=== PATIENT | female | born 1995 | race Caucasian/White ===

== ENCOUNTER 2017-06-14 16:46 | Inpatient (IN) | payer OTHER ==
[~2017-06-14] VITALS: Ht 167.6 cm; Wt 60.1 kg
[2017-06-14 16:50] VITALS: Ht 167.6 cm; Wt 60.1 kg
[2017-06-14] MEDS ORDERED: KETOROLAC 30 MG INJ IV STA (17:31)
[2017-06-14] MEDS ORDERED: SOD CHLORIDE 0.9% 1,000 ML IV STA ×2 (17:31→18:47)
[2017-06-14] MEDS ORDERED: ACETAMINOPHEN 500 MG TAB PO STA (17:33)
--- NOTE | 2017-06-14 17:41 | ERD ---
ER Documentation Chief Complaint Chief Complaint Fever right flank pain HPI This is a 21-year-old female complains of diffuse body aches dull headache, right flank pain fever with mild/ mod dysuria, with severe urinary frequency urinating every 20-30 minutes. She says she has had the symptoms for 2-3 days now. Says that she has a dull headache is diffuse no sore throat no photophobia no stiff neck. She says she has diffuse arthralgias and myalgias. Also complains of some right flank pain is dull and constant worse with walking. No abdominal pain no vomiting diarrhea no shortness of breath chest pain or cough ROS All systems reviewed and are negative except as per history of present illness. Allergies Allergies: Coded Allergies: No Known Allergy (Unverified , 06/14/17) PMhx/Soc Medical and Surgical Hx: pt denies Medical Hx, pt denies Surgical Hx Hx Alcohol Use: No Hx Substance Use: No Hx Tobacco Use: No Smoking Status: Never smoker FmHx Family History: No coronary disease Physical Exam Vitals Vital Signs Date Time Temp Pulse Resp B/P Pulse Ox O2 Delivery O2 Flow Rate FiO2 06/14/17 16:50 102.6 131 20 117/62 98 Physical Exam Const: Well-developed, well-nourished Head: Atraumatic, normocephalic Eyes: Normal Conjunctiva, PERRLA, EOMI, normal sclera, no nystagmus ENT: Normal External Ears, Nose and Mouth, moist mucus membranes. Neck: Full range of motion. No meningismus, no lymphadenopathy. Resp: Clear to auscultation bilaterally, no wheezing, rhonchi, rales Cardio: Tachycardia no murmurs, S1 S2 present Abd: Soft, patient appears approximately 4 months, suprapubic tenderness mild, non distended. Normal bowel sounds, no guarding or rebound, no pulsitile abdominal masses or bruits Skin: No petechiae or rashes, no ecchymosis , no maculopapular rash Back: Right flank tenderness Ext: No cyanosis, or edema, FROM x 4, normal inspection, neurovascularly intact x 4 Neur: Awake and alert, STR 5/5 x 4, sensation intact x 4, no focal findings, cerebellum intact Psych: Normal Mood and Affect Result Diagram: 11/4/17 1747 11/4/17 1747 Results 24 hrs Laboratory Tests Test 06/14/17 17:47 White Blood Count 17.110^3/ul Red Blood Count 3.2810^6/ul Hemoglobin 9.8g/dl Hematocrit 28.2% Mean Corpuscular Volume 86.0fl Mean Corpuscular Hemoglobin 29.9pg Mean Corpuscular Hemoglobin Concent 34.8g/dl Red Cell Distribution Width 12.6% Platelet Count 44449^3/UL Mean Platelet Volume 10.1fl Neutrophils % % Segmented Neutrophils % (Manual) 72% Band Neutrophils % (Manual) 9% Lymphocytes % % Lymphocytes % (Manual) 9% Monocytes % % Monocytes % (Manual) 7% Eosinophils % % Eosinophils % (Manual) 1% Basophils % % Metamyelocytes % (manual) 2% Nucleated Red Blood Cells % 0.0/100WBC Neutrophils # 10^3/ul Neutrophils # (Manual) 12.610^3/ul Band Neutrophils # 1.510^3/ul Absolute Lymphocytes (Manual) 1.510^3/ul Lymphocytes # 10^3/ul Monocytes # 10^3/ul Absolute Monocytes (Manual) 1.110^3/ul Eosinophils # 10^3/ul Basophils # 10^3/ul Metamyelocytes # 0.310^3/ul Nucleated Red Blood Cells # 10^3/ul Platelet Estimate NORMAL Urine Color YELLOW Urine Clarity CLEAR Urine pH 6.0 Urine Specific [place] 1.002 Urine Ketones NEGATIVEmg/dL Urine Nitrite NEGATIVEmg/dL Urine Bilirubin NEGATIVEmg/dL Urine Urobilinogen 2+mg/dL Urine Leukocyte Esterase 1+[place]/ul Urine Microscopic RBC 0/HPF Urine Microscopic WBC 3/HPF Urine Hemoglobin 1+mg/dL Urine Glucose NEGATIVEmg/dL Urine Total Protein 1+mg/dl Sodium Level 127mmol/L Potassium Level 2.8mmol/L Chloride Level 91mmol/L Carbon Dioxide Level 24mmol/L Anion Gap 15 Blood Urea Nitrogen 3mg/dl Creatinine 0.69mg/dl Glucose Level 105mg/dl Calcium Level 8.0mg/dl Total Bilirubin 0.4mg/dl Direct Bilirubin 0.00mg/dl Indirect Bilirubin 0.4mg/dl Aspartate Amino Transf (AST/SGOT) 21IU/L Alanine Aminotransferase (ALT/SGPT) 26IU/L Alkaline Phosphatase 87IU/L Total Protein 5.9g/dl Albumin 3.1g/dl Globulin 2.80g/dl Albumin/Globulin Ratio 1.10 Current Medications Medications (Trade) Dose Ordered Sig/Tanvi Route PRN Reason Start Time Stop Time Status Last Admin Dose Admin Sodium Chloride (NS) 1,000 ml @ 1,000 mls/hr Q1H STAT IV 06/14/17 17:31 06/14/17 18:30 DC 06/14/17 18:20 Ketorolac Tromethamine 30 mg 30 mg ONCE STAT IV 06/14/17 17:31 06/14/17 17:32 DC Ceftriaxone Sodium (Rocephin) 50 ml @ 100 mls/hr ONCE ONCE IVPB 06/14/17 18:00 06/14/17 18:29 DC 06/14/17 18:20 Acetaminophen 1000 mg 1,000 mg ONCE STAT PO 06/14/17 17:33 06/14/17 17:34 DC 06/14/17 18:20 Sodium Chloride 1,000 ml @ 1,000 mls/hr Q1H STAT IV 06/14/17 18:47 06/14/17 19:46 Potassium Chloride/Dextrose (KCl/D5W) 265 ml @ 88.333 mls/ hr ONCE ONCE IVPB 06/14/17 20:00 06/14/17 22:59 Hydromorphone HCl (Dilaudid) 1 mg ONCE STAT IV 06/14/17 19:10 06/14/17 19:11 DC Ondansetron HCl (Zofran Inj) 4 mg ONCE STAT IV 06/14/17 19:10 06/14/17 19:11 DC Procedures/MDM Ultrasound of the pelvis demonstrates a 22 week 4 day fetus, viable, read by radiology The patient did not know she was . The patient gets the Depakote shot. The patient's white blood count is elevated with a mild bandemia. She also has hypokalemia. Patient clinically has pyelonephritis at 22 weeks . We will admit the patient for IV antibiotics and fluids, and pain control. Blood cultures and urine cultures have been sent the patient received Rocephin 1 g IV here We will call the laborist for admission Departure Diagnosis: Primary Impression: Pyelonephritis Additional Impressions: Weeks of gestation: 22 weeks Qualified Code: Z3A.22 - 22 weeks gestation of Hypokalemia Condition: Stable PRINCESS LOPEZ 4, 2017 17:41
[2017-06-14] MEDS ORDERED: CEFTRIAXONE 1 GM/50 ML (PMX) 50 ML IVPB ONE (18:00)
[2017-06-14] MEDS ORDERED: ONDANSETRON 4 MG INJ IV STA (19:10)
[2017-06-14] MEDS ORDERED: HYDROmorphONE 1 MG/ML SYG IV STA (19:10)
[2017-06-14] MEDS ORDERED: SOD CHLORIDE 0.9% 1,000 ML IV SCH (19:31)
--- NOTE | 2017-06-14 19:42 | RADRPT ---
PROCEDURE: US OB. CLINICAL INDICATION: Pain. TECHNIQUE: Multiple sonographic images of the pelvis were obtained. Transabdominal imaging only w as performed. The images were reviewed on a PACS workstation. COMPARISON: None. FINDINGS: Single live intrauterine is identified. Cardiac activity is present with 182 beats per mi nute. There is a vertex presentation. Measurements: BPD = 22 weeks 5 days. HC = 22 weeks 2 days. AC = 22 weeks 4 days. FL = 22 weeks 2 days Estimated gestational age of approximately 22 weeks 3 days. The estimated date of delivery is 10/15/2017. The EFW = 507 g. Limited evaluation of anatomy is without gross abnormality. The placenta is posterior. There is a grossly normal amount of amniotic fluid with an MVP = 5.6 cm. Cervix was not visualized due to low presentation. IMPRESSION: Single live intrauterine gestation of approximately 22 weeks 3 days. RPTAT: HMVK .Ryan Hinds MD, Date Time Electronically viewed and signed by .Ryan Hinds MD, MD on 06/14/2017 19:42 .K/
[2017-06-14] MEDS ORDERED: ONDANSETRON 4 MG INJ IV PRN (20:00)
[2017-06-14] MEDS ORDERED: ACETAMINOPHEN 325 MG TAB PO PRN (20:00)
[2017-06-14] MEDS ORDERED: POTASSIUM CHLORIDE 30 MEQ in DEXTROSE 5% 250 ML IVPB ONE (20:00)
[2017-06-15 01:09] VITALS: BP 100/53; PULSE 90; RESP 18
[2017-06-15] MEDS ORDERED: ACETAMINOPHEN 1000MG/100ML IV 100 ML IVPB ONE (01:30)
[2017-06-15] MEDS ORDERED: ONDANSETRON 4 MG INJ IV PRN (01:30)
--- NOTE | 2017-06-15 01:36 | HP ---
Date/Time of Note Date/Time of Note DATE: 06/15/17 TIME: 01:33 OB - History Hx of Present Free Text/Dictation 21 y.o. G1 who states she has been on Depo-Provera injections q 3 months but doesn't recall when the last one was and was found to be 22 weeks and the patient states that she didn't know. Pt came to the ER for back pain and chills and was found to have a right pyelonephritis with an elevated WBC count, right CVAT, and a temperature of 102.6. She has been symptomatic x 1 week along with nausea and vomiting including some vomiting of blood. PMHx: none. PSHx: none. NKDA. Estimated Due Date: Oct 15, 2017 : 1 Para: 0 Care: None Ultrasounds: No ultrasounds Obstetrical Complications: None Medical Complications: Genitourinary (pyelonephritis) Other Concerns: Pt states her parents are very conservative and pentecostalism and she thinks she will get kicked out of the house. She says her sister had a boyfriend and her parents stopped talking to her and now that she is engaged her parents have just barely started talking to her again. Also apparently the father of the baby is in [facility] and hasn't been sentenced yet so she doesn't know for how long. Past Family/Social History * Past Medical, Surgical, Family and Obstetric Histories reviewed from chart. Blood Type: Unknown Rubella: unknown RPR/VDRL: Unknown GBS Status: Unknown HBsAG: Unknown OB Admission Exam Vital Signs Vital Signs Vital Signs Date Time Temp Pulse Resp B/P Pulse Ox O2 Delivery O2 Flow Rate FiO2 06/15/17 01:09 97.6 90 18 100/53 Room Air 06/14/17 16:50 98 Physical Exam HEENT: WNL Heart: Rhythm Normal Lungs: Clear (with 1+ right CVAT.) Abdomen: Abnormal (gravid) Extremities: Normal Reflexes: Normal Heart Rate: 120's Contractions on Admission: None Last 72 hours Lab Results CBC & BMP 06/14/17 17:47 Liver Function Test 06/14/17 17:47 Alanine Aminotransferase (ALT/SGPT) 26 Albumin 3.1 L Alkaline Phosphatase 87 Aspartate Amino Transf (AST/SGOT) 21 Direct Bilirubin 0.00 Total Protein 5.9 L OB Assessment/Plan Reason for admission: other (pyelonephritis) Other Assessment: Anemia. Other plan: IV hydration and IV antibiotics. K+ replacement. PNV and iron. dope maintenance worker consult. YOKO MARTINEZ MD Jun 15, 2017 01:36
--- NOTE | 2017-06-15 01:36 | HP ---
Date/Time of Note Date/Time of Note DATE: 06/15/17 TIME: 01:33 OB - History Hx of Present Free Text/Dictation 21 y.o. G1 who states she has been on Depo-Provera injections q 3 months but doesn't recall when the last one was and was found to be 22 weeks and the patient states that she didn't know. Pt came to the ER for back pain and chills and was found to have a right pyelonephritis with an elevated WBC count, right CVAT, and a temperature of 102.6. She has been symptomatic x 1 week along with nausea and vomiting including some vomiting of blood. PMHx: none. PSHx: none. NKDA. Estimated Due Date: Oct 15, 2017 : 1 Para: 0 Care: None Ultrasounds: No ultrasounds Obstetrical Complications: None Medical Complications: Genitourinary (pyelonephritis) Other Concerns: Pt states her parents are very conservative and denominational and she thinks she will get kicked out of the house. She says her sister had a boyfriend and her parents stopped talking to her and now that she is engaged her parents have just barely started talking to her again. Also apparently the father of the baby is in penitentiary and hasn't been sentenced yet so she doesn't know for how long. Past Family/Social History * Past Medical, Surgical, Family and Obstetric Histories reviewed from chart. Blood Type: Unknown Rubella: unknown RPR/VDRL: Unknown GBS Status: Unknown HBsAG: Unknown OB Admission Exam Vital Signs Vital Signs Vital Signs Date Time Temp Pulse Resp B/P Pulse Ox O2 Delivery O2 Flow Rate FiO2 06/15/17 01:09 97.6 90 18 100/53 Room Air 06/14/17 16:50 98 Physical Exam HEENT: WNL Heart: Rhythm Normal Lungs: Clear (with 1+ right CVAT.) Abdomen: Abnormal (gravid) Extremities: Normal Reflexes: Normal Heart Rate: 120's Contractions on Admission: None Last 72 hours Lab Results CBC & BMP 06/14/17 17:47 Liver Function Test 06/14/17 17:47 Alanine Aminotransferase (ALT/SGPT) 26 Albumin 3.1 L Alkaline Phosphatase 87 Aspartate Amino Transf (AST/SGOT) 21 Direct Bilirubin 0.00 Total Protein 5.9 L OB Assessment/Plan Reason for admission: other (pyelonephritis) Other Assessment: Anemia. Other plan: IV hydration and IV antibiotics. K+ replacement. PNV and iron. wafer line worker consult. YOKO MARTINEZ MD Jun 15, 2017 01:36
--- NOTE | 2017-06-15 01:36 | HP ---
Date/Time of Note Date/Time of Note DATE: 06/15/17 TIME: 01:33 OB - History Hx of Present Free Text/Dictation 21 y.o. G1 who states she has been on Depo-Provera injections q 3 months but doesn't recall when the last one was and was found to be 22 weeks and the patient states that she didn't know. Pt came to the ER for back pain and chills and was found to have a right pyelonephritis with an elevated WBC count, right CVAT, and a temperature of 102.6. She has been symptomatic x 1 week along with nausea and vomiting including some vomiting of blood. PMHx: none. PSHx: none. NKDA. Estimated Due Date: Oct 15, 2017 : 1 Para: 0 Care: None Ultrasounds: No ultrasounds Obstetrical Complications: None Medical Complications: Genitourinary (pyelonephritis) Other Concerns: Pt states her parents are very conservative and tenriism and she thinks she will get kicked out of the house. She says her sister had a boyfriend and her parents stopped talking to her and now that she is engaged her parents have just barely started talking to her again. Also apparently the father of the baby is in retirement and hasn't been sentenced yet so she doesn't know for how long. Past Family/Social History * Past Medical, Surgical, Family and Obstetric Histories reviewed from chart. Blood Type: Unknown Rubella: unknown RPR/VDRL: Unknown GBS Status: Unknown HBsAG: Unknown OB Admission Exam Vital Signs Vital Signs Vital Signs Date Time Temp Pulse Resp B/P Pulse Ox O2 Delivery O2 Flow Rate FiO2 06/15/17 01:09 97.6 90 18 100/53 Room Air 06/14/17 16:50 98 Physical Exam HEENT: WNL Heart: Rhythm Normal Lungs: Clear (with 1+ right CVAT.) Abdomen: Abnormal (gravid) Extremities: Normal Reflexes: Normal Heart Rate: 120's Contractions on Admission: None Last 72 hours Lab Results CBC & BMP 06/14/17 17:47 Liver Function Test 06/14/17 17:47 Alanine Aminotransferase (ALT/SGPT) 26 Albumin 3.1 L Alkaline Phosphatase 87 Aspartate Amino Transf (AST/SGOT) 21 Direct Bilirubin 0.00 Total Protein 5.9 L OB Assessment/Plan Reason for admission: other (pyelonephritis) Other Assessment: Anemia. Other plan: IV hydration and IV antibiotics. K+ replacement. PNV and iron. garage worker consult. YOKO MARTINEZ MD Jun 15, 2017 01:36
[2017-06-15] MEDS: SOD CHLORIDE 0.9% 1,000 ML IV SCH ×4 (01:44→22:10)
[2017-06-15] MEDS: HYDROCODONE/APAP (10/325) TAB PO PRN ×2 (13:35→22:15)
[2017-06-15] MEDS ORDERED: ACETAMINOPHEN 1000MG/100ML IV 100 ML IVPB SCH (17:00)
[2017-06-15] MEDS ORDERED: ACETAMINOPHEN 1000MG/100ML IV 100 ML IVPB PRN (17:00)
[2017-06-15] MEDS ORDERED: ACETAMINOPHEN 325 MG TAB PO PRN (17:00)
[2017-06-15] MEDS ORDERED: HYDROmorphONE 1 MG/ML SYG IV PRN (17:00)
--- NOTE | 2017-06-15 17:08 | PN ---
Date/Time of Note Date/Time of Note DATE: 06/15/17 TIME: 16:57 Assessment/Plan VTE Prophylaxis VTE Prophylaxis Intervention: ambulation Subjective 24 Hr Interval Summary Free Text/Dictation February 12, 2017 scrap kettle tender progress note This patient is a 21 years old 2 para 0 1 with estimated date of confinement of October 15, 2017 which makes her 22 weeks and 4 days now she came to ER complaining of a low back pain and fever. She stated that she did not even know that she is . her condition of pain fatigue and temperature apparently was continued for a week . some workup was done in the emergency room; including blood culture results of which is not available, her WBC was 17.1 'on electrolyte potassium was 2.8. her body temperature was 102.6 in the OR' she was given Rocephin 1 g and is supposed to be repeated every 24 hours . this patient constantly asking for narcotics as a pain reliever. in response to 'what is the level of pain from 1-10 ' she says her level is 12/ 10 which appears to be an exaggeration Constitutional: other (Occasional elevation of temperature), No chills, No diaphoresis, No disoriented, No febrile, No improved, No no complaints, No poor po, No requiring IVF, No requiring O2 Eyes: other (.) ENT: No bleeding, No congestion, No discharge, No dysphagia, No no complaints, No other, No pain, No sore throat Respiratory: No cough, No no complaints, No other, No pain, No pleuritic pain, No shortness of breath, No sputum, No wheezing Cardiovascular: other (.), No chest pain, No edema (Her chest is clear to auscultation or percussion no rales. ), No lightheadedness, No no complaints, No orthopenea, No palpitations , No paroxysmal nocturnal dyspnea Gastrointestinal: No blood, No constipation, No decreased appetite, No diarrhea , No flatus, No nausea, No no complaints, No other, No pain, No passing stool, No vomiting Genitourinary: other (As I mentioned she is complaining of generalized body ache especially on her back ) Skin: other (No eruption no petechiae), No bruising, No erythema, No laceration, No no complaints, No pruritis, No rash, No skin lesions Neurologic: other (Knee-jerk reflexes within normal limit), No confusion, No dizziness, No focal-weakness, No headache, No no complaints , No seizure, No syncope Endocrine: No dry skin, No no complaints, No other, No polydypsia, No polyuria , No temp intolerance Lymphatic: No adenopathy, No lymphadema, No no complaints, No other, No tender nodes Psychological: No anxiety, No confusion, No depression, No nl mood/affect, No no complaints, No other, No suicidal Immunologic: No immunodeficiency, No no complaints, No other, No pruritis, No rhinitis, No urticaria Additional Comments She is placed on Ancef 1 g every day and is receiving different medication for her pain including IV Tylenol, Dilaudid ,Kelso. Basically she is constantly requesting the narcotic pain reliever If her condition continues she should be seen by ID. Exam/Review of Systems Vital Signs Vitals Vital Signs Date Time Temp Pulse Resp B/P Pulse Ox O2 Delivery O2 Flow Rate FiO2 06/15/17 01:09 97.6 90 18 100/53 Room Air 06/14/17 16:50 98 Intake and Output 06/14/17 06/14/17 06/15/17 15:00 23:00 07:00 Intake Total 1525 ml Output Total 450 ml Balance 1075 ml Results Result Diagram: 06/14/17 1747 06/14/17 1747 Results 24 hrs Laboratory Tests Test 06/14/17 17:47 White Blood Count 17.1 H Red Blood Count 3.28 L Hemoglobin 9.8 L Hematocrit 28.2 L Mean Corpuscular Volume 86.0 Mean Corpuscular Hemoglobin 29.9 Mean Corpuscular Hemoglobin Concent 34.8 Red Cell Distribution Width 12.6 Platelet Count 196 Mean Platelet Volume 10.1 Neutrophils % Segmented Neutrophils % (Manual) 72 Band Neutrophils % (Manual) 9 H Lymphocytes % Lymphocytes % (Manual) 9 L Monocytes % Monocytes % (Manual) 7 Eosinophils % Eosinophils % (Manual) 1 Basophils % Metamyelocytes % (manual) 2 H Nucleated Red Blood Cells % 0.0 Neutrophils # Neutrophils # (Manual) 12.6 H Band Neutrophils # 1.5 H Absolute Lymphocytes (Manual) 1.5 Lymphocytes # Monocytes # Absolute Monocytes (Manual) 1.1 H Eosinophils # Basophils # Metamyelocytes # 0.3 H Nucleated Red Blood Cells # Platelet Estimate NORMAL Urine Color YELLOW Urine Clarity CLEAR Urine pH 6.0 Urine Specific [place] 1.002 L Urine Ketones NEGATIVE Urine Nitrite NEGATIVE Urine Bilirubin NEGATIVE Urine Urobilinogen 2+ H Urine Leukocyte Esterase 1+ H Urine Microscopic RBC 0 Urine Microscopic WBC 3 Urine Hemoglobin 1+ H Urine Glucose NEGATIVE Urine Total Protein 1+ H Sodium Level 127 L Potassium Level 2.8 *L Chloride Level 91 L Carbon Dioxide Level 24 Anion Gap 15 Blood Urea Nitrogen 3 L Creatinine 0.69 Glucose Level 105 Calcium Level 8.0 L Total Bilirubin 0.4 Direct Bilirubin 0.00 Indirect Bilirubin 0.4 Aspartate Amino Transf (AST/SGOT) 21 Alanine Aminotransferase (ALT/SGPT) 26 Alkaline Phosphatase 87 Total Protein 5.9 L Albumin 3.1 L Globulin 2.80 Albumin/Globulin Ratio 1.10 Medications Medications Current Medications Ceftriaxone Sodium (Rocephin) 50 ml @ 100 mls/hr Q24H IVPB ; Start 06/15/17 at 18:30 Ondansetron HCl 4 mg 4 mg Q6H PRN IV NAUSEA AND/OR VOMITING; Start 06/15/17 at 01:30 Sodium Chloride (NS) 1,000 ml @ 125 mls/hr Q8H IV Last administered on 09:28; Admin Dose 125 MLS/HR; Start 06/15/17 at 01:30 Prenat Multivit/ [place]/Iron/Folic Ac () 1 tab DAILY PO ; Start 06/15/17 at 09:00 Polysaccharide Iron Complex (Niferex-150) 1 cap BID PO ; Start 06/15/17 at 09:00 Acetaminophen/ Hydrocodone Bitart (Kelso (10/325)) 1 tab Q4H PRN PO PAIN Last administered on 06/15/17 13:35; Admin Dose 1 TAB; Start 06/15/17 at 13:30 Hydromorphone HCl (Dilaudid) 1 mg Q6H PRN IV PAIN LEVEL 8-10; Start 06/15/17 at 17:00; Status UNV BRENNA JANSEN MD Jun 15, 2017 17:08 BRENNA JANSEN MD Jun 15, 2017 17:08
--- NOTE | 2017-06-15 18:10 | RADRPT ---
PROCEDURE: Renal US. CLINICAL INDICATION: Right flank pain. TECHNIQUE: Multiple sonographic images of the kidneys and urinary bladder were obtained. The imag es were reviewed on a PACS workstation. COMPARISON: No prior studies are available for comparison. FINDINGS: The right kidney measures 11.0 x 6.9 x 5.0 cm. The left kidney measures 11.4 x 6.0 x 5.1 cm. There is no renal mass. There is mild right hydronephrosis. There is no left hydronephrosis. There is no renal calculus. Renal parenchymal thickness is normal bilaterally. Echogenicity is normal bilaterally. The perirenal regions are normal with no fluid collection or mass. The urinary bladder is empty. There is an intrauterine gestation. IMPRESSION: 1. Mild right hydronephrosis. 2. No left hydronephrosis. 3. Empty bladder. 4. Intrauterine gestation. 5. Otherwise unremarkable renal ultrasound. RPTAT: QQ .Cheko Brian MD, Date Time Electronically viewed and signed by .Cheko Brian MD, on 06/15/2017 18:10 .R/
[2017-06-15] MEDS: POLYSACCHARIDE IRON COMPLEX CAP PO SCH ×2 (18:12→22:14)
[2017-06-15] MEDS: PRENATAL VITAMIN PO SCH (18:12)
[2017-06-15] MEDS: CEFTRIAXONE 1 GM/50 ML (PMX) 50 ML IVPB SCH (18:13)
[2017-06-16] MEDS: SOD CHLORIDE 0.9% 1,000 ML IV SCH ×3 (05:06→20:20)
[2017-06-16] MEDS: POLYSACCHARIDE IRON COMPLEX CAP PO SCH ×2 (09:18→21:00)
[2017-06-16] MEDS: PRENATAL VITAMIN PO SCH (09:18)
[2017-06-16] MEDS: HYDROCODONE/APAP (10/325) TAB PO PRN (09:21)
[2017-06-16] MEDS: CEFTRIAXONE 1 GM/50 ML (PMX) 50 ML IVPB SCH (18:30)
[2017-06-16] MEDS: POTASSIUM CHLORIDE (SR) 20 MEQ TAB PO SCH (20:10)
[2017-06-17] MEDS: POTASSIUM CHLORIDE (SR) 20 MEQ TAB PO SCH (00:34)
[2017-06-17] MEDS: SOD CHLORIDE 0.9% 1,000 ML IV SCH ×3 (06:15→23:44)
[2017-06-17] MEDS: HYDROCODONE/APAP (10/325) TAB PO PRN (08:55)
[2017-06-17] MEDS: PRENATAL VITAMIN PO SCH (08:56)
[2017-06-17] MEDS: POLYSACCHARIDE IRON COMPLEX CAP PO SCH ×2 (08:56→21:54)
[2017-06-17] MEDS ORDERED: POTASSIUM CHLORIDE (SR) 20 MEQ TAB PO STA (13:38)
--- NOTE | 2017-06-17 17:50 | QN ---
Documentation Comment Pyelonephritis No pain comfortable afebrile No Vb +FHR No CTXs No CVA tenderness today --->possible Discharge tomorrow --->continue Antibiotics DESMOND GELLER M.D. Jun 17, 2017 17:50
[2017-06-17] MEDS: CEFTRIAXONE 1 GM/50 ML (PMX) 50 ML IVPB SCH (18:27)
[2017-06-18] MEDS: SOD CHLORIDE 0.9% 1,000 ML IV SCH ×2 (08:30→17:30)
[2017-06-18] MEDS: PRENATAL VITAMIN PO SCH (09:19)
[2017-06-18] MEDS: POLYSACCHARIDE IRON COMPLEX CAP PO SCH (11:44)
[2017-06-18] MEDS ORDERED: LACTATED RINGER'S 1,000 ML IV SCH (13:31)
--- NOTE | 2017-06-18 17:31 | PD.PPDC ---
REPAIRER HANDTOOLS Discharge Instruction Provider Information Physician Information Guilherme Rodriguez MD Condition Patient Condition: Good Diet Diet: Resume Regular Diet Activity/Restrictions Activity: Normal Activity Restrictions: No Lifting No Driving Nothing in the Vagina No Tampons, douche Follow-up Follow-up with Physician: 2, Day/Days Provider Information: Patient desires and requests termination. s/p social media marketing manager consultation. Family planning associated information was provided to the patient. Patient understands limitation of GA less than 24 weeks at the time of termination. She also was given information about all review REPAIRER HANDTOOLS department to have a follow-up within 2 days after discharge from the hospital or in any case that she could not proceed with termination. Patient consideres baby for adoption if she cannot proceed with termination. All questions were answered. Explained to the patient needs to continue complete course of treatment for pyelonephritis for 14 days with p.o. antibiotics around the clock and then prophylactic treatment once a day pill through the rest of the and course. Patient verbalized understanding. Adequate p.o. hydration discussed with the patient. Patient verbalized understanding all above discussion and had no questions. Return to clinic for STEEL RULE DIE MAKER Instructions: Fever greater than 101 Chills Worsening abdominal pain Excessive Vaginal Bleeding Comment: Sent to present to labor and delivery triage if she has any fever, chills, urinary symptoms, leaking of fluid, vaginal bleeding, decreased movements , abdominal pain or for any other concern. GUILHERME RODRIGUEZ MD Jun 18, 2017 17:31
--- NOTE | 2017-06-18 17:31 | PD.PPDC ---
ULTRASONOGRAPHER Discharge Instruction Provider Information Physician Information Guilherme Rodriguez MD Condition Patient Condition: Good Diet Diet: Resume Regular Diet Activity/Restrictions Activity: Normal Activity Restrictions: No Lifting No Driving Nothing in the Vagina No Tampons, douche Follow-up Follow-up with Physician: 2, Day/Days Provider Information: Patient desires and requests termination. s/p social sciences instructor consultation. Family planning associated information was provided to the patient. Patient understands limitation of GA less than 24 weeks at the time of termination. She also was given information about all review ULTRASONOGRAPHER department to have a follow-up within 2 days after discharge from the hospital or in any case that she could not proceed with termination. Patient consideres baby for adoption if she cannot proceed with termination. All questions were answered. Explained to the patient needs to continue complete course of treatment for pyelonephritis for 14 days with p.o. antibiotics around the clock and then prophylactic treatment once a day pill through the rest of the and course. Patient verbalized understanding. Adequate p.o. hydration discussed with the patient. Patient verbalized understanding all above discussion and had no questions. Return to clinic for HAND QUILTER Instructions: Fever greater than 101 Chills Worsening abdominal pain Excessive Vaginal Bleeding Comment: Sent to present to labor and delivery triage if she has any fever, chills, urinary symptoms, leaking of fluid, vaginal bleeding, decreased movements , abdominal pain or for any other concern. GUILHERME RODRIGUEZ MD Jun 18, 2017 17:31
--- NOTE | 2017-06-18 17:31 | PD.PPDC ---
[facility] Discharge Instruction Provider Information Physician Information Guilherme Rodriguez MD Condition Patient Condition: Good Diet Diet: Resume Regular Diet Activity/Restrictions Activity: Normal Activity Restrictions: No Lifting No Driving Nothing in the Vagina No Tampons, douche Follow-up Follow-up with Physician: 2, Day/Days Provider Information: Patient desires and requests termination. s/p healthcare social worker consultation. Family planning associated information was provided to the patient. Patient understands limitation of GA less than 24 weeks at the time of termination. She also was given information about all review [facility] department to have a follow-up within 2 days after discharge from the hospital or in any case that she could not proceed with termination. Patient consideres baby for adoption if she cannot proceed with termination. All questions were answered. Explained to the patient needs to continue complete course of treatment for pyelonephritis for 14 days with p.o. antibiotics around the clock and then prophylactic treatment once a day pill through the rest of the and course. Patient verbalized understanding. Adequate p.o. hydration discussed with the patient. Patient verbalized understanding all above discussion and had no questions. Return to clinic for MATERIAL ANALYST Instructions: Fever greater than 101 Chills Worsening abdominal pain Excessive Vaginal Bleeding Comment: Sent to present to labor and delivery triage if she has any fever, chills, urinary symptoms, leaking of fluid, vaginal bleeding, decreased movements , abdominal pain or for any other concern. GUILHERME RODRIGUEZ MD Jun 18, 2017 17:31
--- NOTE | 2017-06-18 17:38 | PN ---
Date/Time of Note Date/Time of Note DATE: 06/18/17 TIME: 17:32 OB Subjective Subjective Subjective Patient reports swelling of the both labia majora. Denies any fever, chills, leaking of fluid, vaginal bleeding, abdominal pain, denies any abnormal vaginal discharge or any other complaints Patient inquires about termination. She had already contacted family planning associated and have gotten some information. Reports does not have any plan to keep the baby even if she could not proceed with termination and plans to give the baby for adoption due to living situation. She has seen social media marketing analyst already. States the father of the baby is not in the picture anymore and she could not be able to take care of the baby after the baby is born if could not proceed with termination. She would like to have her information confidential OB Objective Objective Objective GA" alert and oriented 4. Patient does not appear to be in any acute distress. Abdomen: Soft, gravid, fundal height consistent with gestational age No abdominal tenderness, no uterine tenderness, no CVA tenderness, no suprapubic tenderness, Fundal height consistent with gestational age, no contraction palpable or seen on the monitor Extremities: No calf tenderness, no click, no edema no cords palpable External genitalia: There is edema of both labia majora slightly more in the left side than right. Hematology - 72 Hrs Test 06/16/17 05:39 06/17/17 12:07 06/18/17 08:09 White Blood Count 13.410^3/ul (4.8-10.8) #H 8.310^3/ul (4.8-10.8) # 5.410^3/ul (4.8-10.8) # Red Blood Count 2.6010^6/ul (4.20-5.40) #L 2.8810^6/ul (4.20-5.40) L 2.9010^6/ul (4.20-5.40) L Hemoglobin 7.6g/dl (12.0-16.0) #L 8.7g/dl (12.0-16.0) L 8.3g/dl (12.0-16.0) L Hematocrit 22.9% (37.0-47.0) L 25.4% (37.0-47.0) L 25.7% (37.0-47.0) L Mean Corpuscular Volume 88.1fl (82.0-101.0) 88.2fl (82.0-101.0) 88.6fl (82.0-101.0) Mean Corpuscular Hemoglobin 29.2pg (29.0-33.0) 30.2pg (29.0-33.0) 28.6pg (29.0-33.0) L Mean Corpuscular Hemoglobin Concent 33.2g/dl (32.0-37.0) 34.3g/dl (32.0-37.0) 32.3g/dl (32.0-37.0) Red Cell Distribution Width 13.3% (11.5-14.5) 13.5% (11.5-14.5) 13.7% (11.5-14.5) Platelet Count 46240^3/UL (140-415) 08088^3/UL (140-415) # 97680^3/UL (140-415) Mean Platelet Volume 10.5fl (7.4-10.4) H 10.0fl (7.4-10.4) 9.8fl (7.4-10.4) Neutrophils % % (39.0-77.0) % (39.0-77.0) % (39.0-77.0) Segmented Neutrophils % (Manual) 66% (39-77) 75% (39-77) 60% (39-77) Band Neutrophils % (Manual) 20% (0-4) H 7% (0-4) H Lymphocytes % % (15.0-51.0) % (15.0-51.0) % (15.0-51.0) Lymphocytes % (Manual) 8% (15-51) L 12% (15-51) L 25% (15-51) Reactive Lymphocytes % (Manual) 2% (0-0) H Monocytes % % (0.0-11.0) % (0.0-11.0) % (0.0-11.0) Monocytes % (Manual) 3% (0-11) 5% (0-11) 7% (0-11) Eosinophils % % (0.0-7.0) % (0.0-7.0) % (0.0-7.0) Eosinophils % (Manual) 1% (0-7) 1% (0-7) 1% (0-7) Basophils % % (0.0-2.0) % (0.0-2.0) % (0.0-2.0) Nucleated Red Blood Cells % 0.0/100WBC (0.0-0.0) 0.0/100WBC (0.0-0.0) 0.0/100WBC (0.0-0.0) Neutrophils # 10^3/ul (1.6-7.5) 10^3/ul (1.6-7.5) 10^3/ul (1.6-7.5) Neutrophils # (Manual) 9.210^3/ul (1.7-7.5) H 6.310^3/ul (1.7-7.5) Band Neutrophils # 2.610^3/ul (0.0-0.6) H 0.510^3/ul (0.0-0.6) Absolute Lymphocytes (Manual) 1.010^3/ul (0.8-2.9) 0.910^3/ul (0.8-2.9) 1.310^3/ul (0.8-2.9) Lymphocytes # 10^3/ul (0.8-2.9) 10^3/ul (0.8-2.9) 10^3/ul (0.8-2.9) Reactive Lymphocytes # 0.210^3/ul (0.0-0.0) H Monocytes # 10^3/ul (0.3-0.9) 10^3/ul (0.3-0.9) 10^3/ul (0.3-0.9) Absolute Monocytes (Manual) 0.410^3/ul (0.3-0.9) 0.410^3/ul (0.3-0.9) 0.310^3/ul (0.3-0.9) Eosinophils # 10^3/ul (0.0-0.5) 10^3/ul (0.0-0.5) 10^3/ul (0.0-0.5) Basophils # 10^3/ul (0.0-0.1) 10^3/ul (0.0-0.1) 10^3/ul (0.0-0.1) Nucleated Red Blood Cells # 10^3/ul (0.0-0.0) 10^3/ul (0.0-0.0) 10^3/ul (0.0-0.0) Platelet Estimate NORMAL NORMAL NORMAL Polychromasia 1+ (0-0) 2+ (0-0) Anisocytosis 1+ (0-0) 1+ (0-0) 1+ (0-0) Microcytosis 1+ (0-0) Poikilocytosis 1+ (0-0) Rouleau 1+ (0-0) Basophils % (Manual) 1% (0-2) Myelocytes % (Manual) 2% (0-0) H Promyelocytes % (Manual) 2% (0-0) H Blast Cells % (Manual) 2.0% (0-0) H Basophils # (Manual) 0.010^3/ul (0.0-0.0) Myelocytes # 0.110^3/ul (0.0-0.0) H Promyelocytes # 0.110^3/ul (0-0) H Chemistry Test 06/16/17 05:38 06/17/17 12:07 06/18/17 08:09 Sodium Level 138mmol/L (135-144) 139mmol/L (135-144) 140mmol/L (135-144) Potassium Level 2.6mmol/L (3.5-5.1) *L 2.9mmol/L (3.5-5.1) *L 3.3mmol/L (3.5-5.1) L Chloride Level 107mmol/L (97-110) # 109mmol/L (97-110) 109mmol/L (97-110) Carbon Dioxide Level 25mmol/L (21-31) 22mmol/L (21-31) 23mmol/L (21-31) Anion Gap 9 (8-16) # 11 (8-16) 11 (8-16) Blood Urea Nitrogen 5mg/dl (7-20) L < 2mg/dl (7-20) L < 2mg/dl (7-20) L Creatinine 0.54mg/dl (0.44-1.00) 0.51mg/dl (0.44-1.00) 0.52mg/dl (0.44-1.00) Glucose Level 84mg/dl (70-220) 99mg/dl (70-220) 81mg/dl (70-220) Calcium Level 7.9mg/dl (8.4-10.2) L 7.7mg/dl (8.4-10.2) L 7.2mg/dl (8.4-10.2) L Total Bilirubin 0.0mg/dl (0.2-1.3) L 0.0mg/dl (0.2-1.3) L Direct Bilirubin 0.00mg/dl (0.00-0.20) 0.00mg/dl (0.00-0.20) Indirect Bilirubin 0.0mg/dl (0-1.1) 0.0mg/dl (0-1.1) Aspartate Amino Transf (AST/SGOT) 38IU/L (15-46) 43IU/L (15-46) Alanine Aminotransferase (ALT/SGPT) 33IU/L (13-69) 32IU/L (13-69) Alkaline Phosphatase 99IU/L (42-121) 80IU/L (42-121) Total Protein 5.8g/dl (6.1-8.1) L 4.8g/dl (6.1-8.1) #L Albumin 2.5g/dl (3.3-4.9) L 2.0g/dl (3.3-4.9) L Globulin 3.30g/dl (1.3-3.2) H 2.80g/dl (1.3-3.2) Albumin/Globulin Ratio 0.75 0.71 OB Assessment/Plan Other Assessment: IUP at 23 weeks Patient noted that she was when she presented to emergency room. Was unaware of . No care Pyelonephritis, status post IV antibiotics. Symptoms resolved. Patient currently stable. Had been afebrile for 48 hours and her white count currently normal range. She denies any symptoms. No evidence of labor Patient is interested and request information regarding termination as she is not able to take care of the baby after States that father of the baby is no longer in the picture. She does not have any resources to be able to take care of the baby and strongly requests to be referred to family planning associated. Next psychiatric social worker provided information for family planning associated with the contact number. She will call and plans to immediately be seen. Understands gestational age limitation for termination. I have discussed with patient in detail importance of follow-up after discharge from the hospital within 2 days with all review [facility] [facility] [employer] department as she may not be able to proceed immediately with termination. She was advised to have adequate p.o. hydration and continue and complete the full course of antibiotics for 14 days around the clock and then take prophylactic antibiotic treatment during the course of if she is not able to terminate as well as 6 weeks to prevent of any recurrence of pyelonephritis. Strict labor precaution discussed with the patient. All questions were answered to the patient's best satisfaction GUILHERME RODRIGUEZ MD Jun 18, 2017 17:38
--- NOTE | 2017-06-18 17:43 | DS ---
Date/Time of Note Date/Time of Note DATE: 06/18/17 TIME: 17:40 Obstetrical Discharge Record Final Diagnosis Final Diagnosis: not delivered Other Final Diagnosis Pyelonephritis Undesired Was unaware of . Noted to be when she presented with abdominal pain Requests formation regarding termination Complications Other (Patient had no care. Noted to be when she presented to emergency room with abdominal pain. Noted to have pyelonephritis. Status post IV antibiotics. Symptoms significantly improved and resolved. Had been afebrile for more than 48 hours. Patient does not plan to keep the and requests referral to [facility] for termination. She will consider the baby for adoption if she could not be able to proceed with termination. Was discharged home at 23 weeks when she was a stable. Information regarding [facility] was provided to the patient as well as [employer] department at [facility] all of you in order to make a follow-up appointment in 2 days after discharge from the hospital if not be able to pursue with termination. Rx was provided and instructed in how to take it. Strict precaution was also provided to patient. Patient verbalized understanding. She also had seen social work care during this hospitalization with all required information and resources. She sounds understanding all above discussion and had no more questions.) Augmentation: No Induction: No Condition on Discharge Physical Assessment Voiding: Yes Bowel Movement: Yes Abdomen and Incision: Abdomen: Soft, fundal height consistent with gestational age. No fundal or uterine tenderness, no CVA tenderness, no suprapubic tenderness Extremities: No calf tenderness, no click no edema Calf Tenderness: No Patient Condition: Good GUILHERME RODRIGUEZ MD Jun 18, 2017 17:43
--- NOTE | 2017-06-18 17:43 | DS ---
Date/Time of Note Date/Time of Note DATE: 06/18/17 TIME: 17:40 Obstetrical Discharge Record Final Diagnosis Final Diagnosis: not delivered Other Final Diagnosis Pyelonephritis Undesired Was unaware of . Noted to be when she presented with abdominal pain Requests formation regarding termination Complications Other (Patient had no care. Noted to be when she presented to emergency room with abdominal pain. Noted to have pyelonephritis. Status post IV antibiotics. Symptoms significantly improved and resolved. Had been afebrile for more than 48 hours. Patient does not plan to keep the and requests referral to [facility] for termination. She will consider the baby for adoption if she could not be able to proceed with termination. Was discharged home at 23 weeks when she was a stable. Information regarding [facility] was provided to the patient as well as [employer] department at [facility] all of you in order to make a follow-up appointment in 2 days after discharge from the hospital if not be able to pursue with termination. Rx was provided and instructed in how to take it. Strict precaution was also provided to patient. Patient verbalized understanding. She also had seen social work care during this hospitalization with all required information and resources. She sounds understanding all above discussion and had no more questions.) Augmentation: No Induction: No Condition on Discharge Physical Assessment Voiding: Yes Bowel Movement: Yes Abdomen and Incision: Abdomen: Soft, fundal height consistent with gestational age. No fundal or uterine tenderness, no CVA tenderness, no suprapubic tenderness Extremities: No calf tenderness, no click no edema Calf Tenderness: No Patient Condition: Good GUILHERME RODRIGUEZ MD Jun 18, 2017 17:43
[2017-06-18] MEDS: CEFTRIAXONE 1 GM/50 ML (PMX) 50 ML IVPB SCH (18:19)
== END 2017-06-18 20:15 | disposition home or self-care (01) | DRG 781 ==
LOC: FTE 16:46 → OBG 19:40 → EEVIPCON 19:40 → OBG 06-15 01:25
PROVIDERS: ADMIT Obstetrics & Gynecology; ATTEND Obstetrics & Gynecology
DX: O23.02 Infections of kidney in pregnancy, second trimester (principal); Z3A.22 22 weeks gestation of pregnancy
CPT/HCPCS: 36415; 76775; 76805; 80048; 80053; 80307; 81001; 84132; 85025; 87040; 87086; 96374; 96375; J0131; J0696; J1170; J2405; J7030; J7070; J7120

== ENCOUNTER 2017-10-01 05:15 | Inpatient (IN) | END 2017-10-03 20:30 | disposition home or self-care (01) | DRG 775 ==